=== PATIENT | male | born 1975 | race Caucasian/White ===

== ENCOUNTER 2021-04-15 09:24 | Outpatient (CLI) | payer OTHER, SELFPAY ==
--- NOTE | 2021-04-15 09:33 | XR_ITS ---
WS: [id number] Exam: XR shoulder LT min 2V* [id number] Date/Time of Exam: 04/15/2021 9:33 AM Reason For Exam: LEFT SHOULDER ARTHRITIS The projections of the shoulder reveal no fractures, anomalies, soft tissue swelling, or calcificatio ns. There is normal bony alignment. No irregularity of the bony architecture is noted. XR/XR shoulder LT min 2V* [id number] IMPRESSION: Negative left shoulder.
== END 2021-04-15 09:25 | disposition home or self-care (01) ==
LOC: RAD 09:31
PROVIDERS: Visit Provider Orthopaedic Surgery
DX: M13.812 Other specified arthritis, left shoulder (principal)
CPT/HCPCS: 73030